=== PATIENT | female | born 1995 | race Caucasian/White ===

== ENCOUNTER → 2018-08-13 | Outpatient (CLI) | payer OTHER ==
[~2018-08-13] MED LIST: DICL-195 PO; IBU200 PO; LOR5 PO; NAPR-1043 PO; TRIA15OI20 TP
--- NOTE | 2018-08-13 11:37 | RADIOLOGY IMAGING REPORT ---
[place] [facility] [place] NAME: Lis Steiner : 1995 MR: [id number] V: [id number] EXAM DATE: ORDERING PHYSICIAN: KEVIN GARCÍA TECHNOLOGIST: [place] [facility] [place] Ste[place] : 1995 Visit/Account:[id number] Date of Sevice: 08/13/2018 Exam type: US VENOUS LOWER EXT LT History: Left leg pain and swelling, Mirena IUD Comparison: None. Findings: The left lower extremity veins were imaged including the left common femoral vein, greater saphenous vein, superficial femoral vein, popliteal vein,, posterior tibial vein, anterior tibial vein and niurka nasreen veins revealing no evidence of intraluminal thrombi. The veins were compressible and demonstrat ed augmentation IMPRESSION: 1. No sonographic evidence DVT involving the left lower extremity veins Results were called to KEVIN GARCÍA at 08/13/2018 11:30 AM. Report Dictated By: Nena Matta MD at 08/13/2018 11:22 AM Report E-Signed By: Nena Matta MD at 08/13/2018 11:31 AM WSN:[id number]
== END ==
LOC: US 10:30
PROVIDERS: ATTEND Nurse Practitioner Family
DX: M79.605 Pain in left leg (principal)